=== PATIENT | male | born 1970 | race Caucasian/White ===

== ENCOUNTER 2020-01-28 16:45 | Outpatient (REF) | payer BC, SELFPAY | END 2020-01-28 16:46 | disposition home or self-care (01) | LOC: HO.LAB 16:45 | PROVIDERS: Visit Provider Internal Medicine | DX: Z20.828 Contact with and (suspected) exposure to other viral communicable diseases (principal) | CPT/HCPCS: C9803; U0003 ==

== ENCOUNTER 2020-02-11 08:22 | Outpatient (REF) | payer BC, SELFPAY | END 2020-02-11 08:23 | disposition home or self-care (01) | LOC: HO.LAB 08:22 | PROVIDERS: Visit Provider Internal Medicine | DX: Z20.828 Contact with and (suspected) exposure to other viral communicable diseases (principal) | CPT/HCPCS: C9803; U0003 ==

== ENCOUNTER 2021-03-10 08:14 | Outpatient (REF) | payer BC, SELFPAY ==
[2021-03-10 09:17] LABS: COVID-19 Test Negative (Negative); IDNOW Serial# 16C4AD1C
== END 2021-03-10 08:15 | disposition home or self-care (01) ==
LOC: HO.LAB 08:14
PROVIDERS: Visit Provider Internal Medicine
DX: Z20.822 Contact with and (suspected) exposure to COVID-19 (principal)
CPT/HCPCS: 87635; C9803